=== PATIENT | female | born 1950 | race Caucasian/White ===

== ENCOUNTER 2017-03-14 09:24 | Emergency (ER) | payer MEDICARE, OTHER ==
[2017-03-14] MEDS ORDERED: Amoxicillin/Clavulanate K 875-125 MG Tab ONE ×2 (09:25)
[2017-03-14 09:47] VITALS: BP 131/74
[2017-03-14] MEDS ORDERED: cefTRIAXone 1 GM Vial ONE (09:52)
[2017-03-14] MEDS ORDERED: cefTRIAXone 1 GM Vial IM ONE (10:27)
--- NOTE | 2017-03-14 10:34 | EDM.PDOC ---
ED HPI GENERAL MEDICAL PROBLEM - General Chief Complaint: General Stated Complaint: PAIN IN HAND Time Seen by Provider: 03/14/17 09:30 Source of Information: Reports: Patient History Limitations: Reports: No Limitations - History of Present Illness INITIAL COMMENTS - FREE TEXT/NARRATIVE: Pt was seen 2 days going clinic for a painful swelling over the right dorsum of the hand. Now she has developed some redness and swelling of the dorsum of the hand. Pt claims the swelling was noted today morning. No difficulty with making hand functional consultant. No fever or chills. During her clinic visit the swelling over the hand was aspirated under aseptic precautions and there was not return. The swelling appeared like organized hematoma. Duration: Day(s): (2) right hand Pain Score (Numeric/FACES): 8 - Related Data Allergies Allergy/AdvReac Type Severity Reaction Status Date / Time No Known Allergies Allergy Verified 03/14/17 09:47 Past Medical History HEENT History: Reports: Impaired Vision Musculoskeletal History: Reports: Osteoarthritis - Past Surgical History Musculoskeletal Surgical History: Reports: Knee Replacement Social & Family History - Tobacco Use Smoking Status *Q: Never Smoker Second Hand Smoke Exposure: No - Alcohol Use Days Per Week of Alcohol Use: 0 - Recreational Drug Use Recreational Drug Use: No ED ROS GENERAL - Review of Systems Review Of Systems: See Below Constitutional: Denies: Fever, Chills, Malaise, Weakness HEENT: Denies: Sinus Problem, Throat Pain Respiratory: Denies: Shortness of Breath, Wheezing, Cough, Sputum Cardiovascular: Denies: Chest Pain, Lightheadedness : Denies: Flank Pain Musculoskeletal: Reports: Hand Pain. Denies: Joint Pain, Joint Swelling Skin: Reports: Erythema. Denies: Bruising, Pruritis, Wound Neurological: Denies: Confusion, Dizziness, Headache ED EXAM, GENERAL - Physical Exam Exam: See Below Exam Limited By: No Limitations General Appearance: Alert, WD/WN, No Apparent Distress Eye Exam: Bilateral Eye: EOMI, PERRL Ears: Normal External Exam, Normal Canal, Hearing Grossly Normal, Normal TMs Ear Exam: Bilateral Ear: Auricle Normal, Canal Normal, TM normal Nose: Normal Inspection, Normal Mucosa, No Blood Throat/Mouth: Normal Inspection, Normal Lips, Normal Teeth, Normal Gums, Normal Oropharynx, Normal Voice, No Airway Compromise Head: Atraumatic, Normocephalic Neck: Normal Inspection, Supple, Non-Tender, Full Range of Motion Respiratory/Chest: No Respiratory Distress, Lungs Clear, Normal Breath Sounds, No Accessory Muscle Use, Chest Non-Tender Cardiovascular: Normal Peripheral Pulses, Regular Rate, Rhythm, No Edema, No Gallop, No JVD, No Murmur, No Rub Extremities: Normal Capillary Refill, Other (right hadn: there is swelling and erythema about 2cm by 2cms seen over the webspace between index and middle finger.there is edema of the skin over the dorsum of the hand, but no erythema. Warmth felt over the swelling, soft no flucutance). No: Pedal Edema Course - Vital Signs Text/Narrative:: It does appear like there is infection in the swelling over the dorsum of the right hand with skin edema of the dorsum of the hand. Pt has got hand functional consultant and normal strength in extensor of the finger. does not appear like tendonitis. I have empirically covered her with Rocephin 1gmIM, and started on Augmentin 875mg twice daily. Simple antibiotic ointment dressing with josy wrap done. elevated the hand. should resolve with no complication. If hand pain or swelling worsen. Fever or chills develop, pain with movement of the fingers, return to emergency room or clinic NEIL. Last Recorded V/S: Last Vital Signs Temp 98.0 F 03/14/17 09:36 Pulse 74 03/14/17 09:36 Resp 16 03/14/17 09:36 BP 131/74 03/14/17 09:36 Pulse Ox 98 03/14/17 09:36 - Orders/Labs/Meds Orders: Active Orders 24 hr Category Date Time Status cefTRIAXone [Rocephin] Med 03/14/17 10:27 Once 1 gm IM ONETIME ONE Meds: Medications Discontinued Medications Generic Name Dose Route Start Last Admin Trade Name Freq PRN Reason Stop Dose Admin Ceftriaxone Sodium Confirm 03/14/17 09:52 03/14/17 10:07 Rocephin Administered 03/14/17 09:53 1 gm Dose Administration 1 gm .ROUTE .STK-MED ONE Departure - Departure Time of Disposition: 10:30 Disposition: Home, Self-Care 01 Condition: Good Clinical Impression: Abrasion, hand with infection - Discharge Information Referrals: PCP,None [Primary Care Provider] - Forms: ED Department Discharge Additional Instructions: Take the antibiotic until it is completely gone twice a day. Get lots of rest and drink plenty of fluids. Keep the josy wrap on for 24 hours, use hot pack for discomfort. - Problem List & Annotations (1) Abrasion, hand with infection SNOMED Code(s): 733030284 Code(s): S60.519A - ABRASION OF UNSPECIFIED HAND, INITIAL ENCOUNTER; L08.9 - LOCAL INFECTION OF THE SKIN AND SUBCUTANEOUS TISSUE, UNSP Status: Acute - Problem List Review Problem List Initiated/Reviewed/Updated: Yes - My Orders Last 24 Hours: My Active Orders 03/14/17 10:27 cefTRIAXone [Rocephin] 1 gm IM ONETIME ONE - Assessment/Plan Last 24 Hours: My Active Orders 03/14/17 10:27 cefTRIAXone [Rocephin] 1 gm IM ONETIME ONE Assessment:: Right hand superficial infection Plan: It does appear like there is infection in the swelling over the dorsum of the right hand with skin edema of the dorsum of the hand. Pt has got hand functional consultant and normal strength in extensor of the finger. does not appear like tendonitis. I have empirically covered her with Rocephin 1gmIM, and started on Augmentin 875mg twice daily. Simple antibiotic ointment dressing with josy wrap done. elevated the hand. should resolve with no complication. If hand pain or swelling worsen. Fever or chills develop, pain with movement of the fingers, return to emergency room or clinic NEIL.
== END 2017-03-14 10:10 | disposition home or self-care (01) ==
LOC: LB.ED 09:24
DX: S60.519A Abrasion of unspecified hand, initial encounter (principal); X58.XXXA Exposure to other specified factors, initial encounter
CPT/HCPCS: 99283; A9270; J0696

== ENCOUNTER 2018-07-29 12:34 | Emergency (ER) | payer MEDICARE, OTHER ==
[2018-07-29] MEDS ORDERED: Sodium Chloride 0.9% 10 ML Syringe FLUSH PRN (12:40)
[2018-07-29] MEDS ORDERED: Aspirin 81 MG Tab.Chew PO ONE (12:40)
--- NOTE | 2018-07-29 12:40 | EDM.PDOC ---
ED HPI GENERAL MEDICAL PROBLEM - General Chief Complaint: Cardiovascular Problem Stated Complaint: CHEST PAIN AND HEADACHE Time Seen by Provider: 07/29/18 12:37 Source of Information: Reports: Patient, Family, RN History Limitations: Reports: No Limitations - History of Present Illness INITIAL COMMENTS - FREE TEXT/NARRATIVE: 67 yr female presents with left sided chest pain. States she is feeling some different to the left side of the face, but can't explain this anymore. Left Headache Pain Score (Numeric/FACES): 9 Left Chest Pain Score (Numeric/FACES): 4 - Related Data Allergies Allergy/AdvReac Type Severity Reaction Status Date / Time No Known Allergies Allergy Verified 07/29/18 15:03 Home Meds: Home Meds Escitalopram [Lexapro] 20 mg PO DAILY 07/29/18 [History] Past Medical History HEENT History: Reports: Impaired Vision Musculoskeletal History: Reports: Osteoarthritis - Past Surgical History Musculoskeletal Surgical History: Reports: Knee Replacement ED ROS GENERAL - Review of Systems Review Of Systems: See Below Constitutional: Reports: No Symptoms HEENT: Denies: Eye Pain, Hearing Loss, Vision Change Respiratory: Reports: No Symptoms Cardiovascular: Reports: Chest Pain Endocrine: Reports: No Symptoms GI/Abdominal: Reports: No Symptoms : Reports: No Symptoms Musculoskeletal: Reports: Other (tingling/numbness to left side of face) Skin: Reports: No Symptoms Neurological: Reports: Headache. Denies: Trouble Speaking, Difficulty Walking, Change in Speech Psychiatric: Reports: No Symptoms Hematologic/Lymphatic: Reports: No Symptoms Immunologic: Reports: No Symptoms ED EXAM, GENERAL - Physical Exam Exam: See Below Exam Limited By: No Limitations General Appearance: Alert, No Apparent Distress Ears: Normal External Exam, Hearing Grossly Normal Nose: Normal Inspection, Normal Mucosa Throat/Mouth: Normal Voice, No Airway Compromise Head: Atraumatic, Normocephalic Neck: Normal Inspection, Supple, Non-Tender Respiratory/Chest: No Respiratory Distress, Lungs Clear, Normal Breath Sounds Cardiovascular: Normal Peripheral Pulses, Regular Rate, Rhythm Peripheral Pulses: 2+: Radial (L), Radial (R), Dorsalis Pedis (L), Dorsalis Pedis (R) GI/Abdominal: Normal Bowel Sounds, Soft, Non-Tender Back Exam: Normal Inspection, Full Range of Motion Extremities: Normal Inspection, Normal Range of Motion, No Pedal Edema, Normal Capillary Refill Neurological: Alert, Oriented, Normal Cognition Psychiatric: Normal Affect, Normal Mood Skin Exam: Warm, Dry, Normal Color Lymphatic: No Adenopathy EKG INTERPRETATION EKG Date: 07/29/18 Rhythm: NSR Course - Vital Signs Last Recorded V/S: Last Vital Signs Temp 97.2 F 07/29/18 15:26 Pulse 82 07/29/18 15:26 Resp 18 07/29/18 15:26 BP 173/76 H 07/29/18 15:26 Pulse Ox 98 07/29/18 15:26 - Orders/Labs/Meds Orders: Active Orders 24 hr Category Date Time Status Cardiac Monitoring [RC] .As Directed Care 07/29/18 12:40 Active EKG Documentation Completion [RC] ASDIRECTED Care 07/29/18 12:42 Active Saline Lock Insert [OM.PC] Stat Oth 07/29/18 12:40 Ordered Labs: Laboratory Tests 07/29/18 07/29/18 07/29/18 Range/Units 12:40 13:00 13:00 WBC 6.3 (4.0-11.0) K/uL RBC 4.81 (3.80-5.80) M/uL Hgb 13.4 (11.5-16.5) g/dL Hct 40.7 (37.0-47.0) % MCV 85 (76-96) fL MCH 27.9 (27.0-32.0) pg MCHC 32.9 (31.0-35.0) g/dL RDW 15.7 (11.0-16.0) % Plt Count 186 D (150-500) K/uL MPV 9.6 (6.0-10.0) fL Neut % (Auto) 71.6 H (45.0-70.0) % Lymph % (Auto) 19.9 L (20.0-40.0) % [place] % (Auto) 6.6 (3.0-10.0) % Eos % (Auto) 1.4 (1.0-5.0) % Baso % (Auto) 0.5 (0.0-0.5) % Neut # (Auto) 4.53 (2.00-7.50) K/uL Lymph # (Auto) 1.26 L (1.50-4.00) K/uL [place] # (Auto) 0.42 (0.20-0.80) K/uL Eos # (Auto) 0.09 (0.04-0.40) K/uL Baso # (Auto) 0.03 (0.02-0.10) K/uL Sodium 139 (136-145) mmol/L Potassium 3.9 (3.5-5.1) mmol/L Chloride 101 (98-107) mmol/L Carbon Dioxide 27.1 (21.0-32.0) mmol/L Anion Gap 14.8 (5.0-15.0) mmol/L BUN 13 (8-26) mg/dL Creatinine 0.76 (0.55-1.02) mg/dL Est Cr Clr Drug Dosing TNP Estimated GFR (MDRD) > 60 (>60) MLS/MIN BUN/Creatinine Ratio 17.1 (6-25) Glucose 103 H (74-100) mg/dL Calcium 9.3 (8.5-10.1) mg/dL Magnesium 2.1 (1.8-2.4) mg/dL Total Bilirubin 0.3 (0.0-1.0) mg/dL AST 19 (15-37) U/L ALT 26 (12-78) U/L Alkaline Phosphatase 65 (46-116) U/L Troponin I < 0.017 (0.000-0.060) ng/mL Total Protein 7.8 (6.4-8.2) g/dL Albumin 3.9 (3.4-5.0) g/dL Globulin 3.9 (2.2-4.2) g/dL Albumin/Globulin Ratio 1.0 (0.8-2.0) TSH, Ultra Sensitive 1.993 (0.358-3.740) uIU/mL Urine Color Urine Appearance (CLEAR) Urine pH (5.0-8.0) Ur Specific [place] (1.003-1.030) Urine Protein (NEGATIVE) mg/dL Urine Glucose (UA) (NEGATIVE) mg/dL Urine Ketones (NEGATIVE) mg/dL Urine Occult Blood (NEGATIVE) Urine Nitrite (NEGATIVE) Urine Bilirubin (NEGATIVE) Urine Urobilinogen (0.2-1.0) E.U./dL Ur Leukocyte Esterase (NEGATIVE) Urine RBC /HPF Urine WBC /HPF Ur Squamous Epith Cells /HPF 05/30/19 Range/Units 13:25 WBC (4.0-11.0) K/uL RBC (3.80-5.80) M/uL Hgb (11.5-16.5) g/dL Hct (37.0-47.0) % MCV (76-96) fL MCH (27.0-32.0) pg MCHC (31.0-35.0) g/dL RDW (11.0-16.0) % Plt Count (150-500) K/uL MPV (6.0-10.0) fL Neut % (Auto) (45.0-70.0) % Lymph % (Auto) (20.0-40.0) % [place] % (Auto) (3.0-10.0) % Eos % (Auto) (1.0-5.0) % Baso % (Auto) (0.0-0.5) % Neut # (Auto) (2.00-7.50) K/uL Lymph # (Auto) (1.50-4.00) K/uL [place] # (Auto) (0.20-0.80) K/uL Eos # (Auto) (0.04-0.40) K/uL Baso # (Auto) (0.02-0.10) K/uL Sodium (136-145) mmol/L Potassium (3.5-5.1) mmol/L Chloride (98-107) mmol/L Carbon Dioxide (21.0-32.0) mmol/L Anion Gap (5.0-15.0) mmol/L BUN (8-26) mg/dL Creatinine (0.55-1.02) mg/dL Est Cr Clr Drug Dosing Estimated GFR (MDRD) (>60) MLS/MIN BUN/Creatinine Ratio (6-25) Glucose (74-100) mg/dL Calcium (8.5-10.1) mg/dL Magnesium (1.8-2.4) mg/dL Total Bilirubin (0.0-1.0) mg/dL AST (15-37) U/L ALT (12-78) U/L Alkaline Phosphatase (46-116) U/L Troponin I (0.000-0.060) ng/mL Total Protein (6.4-8.2) g/dL Albumin (3.4-5.0) g/dL Globulin (2.2-4.2) g/dL Albumin/Globulin Ratio (0.8-2.0) TSH, Ultra Sensitive (0.358-3.740) uIU/mL Urine Color Yellow Urine Appearance Clear (CLEAR) Urine pH 6.0 (5.0-8.0) Ur Specific [place] 1.010 (1.003-1.030) Urine Protein Negative (NEGATIVE) mg/dL Urine Glucose (UA) Negative (NEGATIVE) mg/dL Urine Ketones Negative (NEGATIVE) mg/dL Urine Occult Blood Trace-intact H (NEGATIVE) Urine Nitrite Negative (NEGATIVE) Urine Bilirubin Negative (NEGATIVE) Urine Urobilinogen 0.2 (0.2-1.0) E.U./dL Ur Leukocyte Esterase Small H (NEGATIVE) Urine RBC 0-5 H /HPF Urine WBC 5-10 H /HPF Ur Squamous Epith Cells Moderate /HPF Meds: Medications Discontinued Medications Generic Name Dose Route Start Last Admin Trade Name Freq PRN Reason Stop Dose Admin Aspirin 324 mg 07/29/18 12:40 07/29/18 12:38 Aspirin PO 07/29/18 12:41 324 mg ONETIME ONE Administration Sodium Chloride 10 ml 07/29/18 12:40 Saline Flush FLUSH ASDIRECTED PRN Keep Vein Open Departure - Departure Time of Disposition: 14:41 Disposition: Home, Self-Care 01 Condition: Good Clinical Impression: Headache, Atypical chest pain Instructions: Nonspecific Chest Pain, Dizziness, [id number] Referrals: PCP,None [Primary Care Provider] - Forms: ED Department Discharge Additional Instructions: Take it easy today. Drink plenty of fluids follow up at the clinic in 1 one week. Make your own appointment If any further problems seek medical attention or call 911. Including chest pain, headache, - My Orders Last 24 Hours: My Active Orders 07/29/18 12:40 Cardiac Monitoring [RC] .As Directed Saline Lock Insert [OM.PC] Stat 07/29/18 12:42 EKG Documentation Completion [RC] ASDIRECTED - Assessment/Plan Last 24 Hours: My Active Orders 07/29/18 12:40 Cardiac Monitoring [RC] .As Directed Saline Lock Insert [OM.PC] Stat 07/29/18 12:42 EKG Documentation Completion [RC] ASDIRECTED Plan: EKG with NSR, chest pain resolved with ASA and rest, troponins negative. Lab results reviewed with pt. Intermittent pain to left forehead and left intercostal rib area. Intermittent numbness/tingling to side of face. CT results reviewed and no infarct noted. Recommend follow-up in clinic next week. Repeat U/A as trace of microscopic hematuria. Symptoms improved and pt less anxious. Monitor BP at home and bring results to the clinic appointment. Return to ER if symptoms persist or worsen. Rest today and up in home as tolerated, diet as tolerated and adequate fluid intake.
--- NOTE | 2018-07-29 14:11 | CR ---
Date of Service: 07/29/18 Clinical Data: Chest Pain AP PORTABLE CHEST: Comparison is made to a prior exam dated 05/16/12. The heart size is normal. The lungs are clear. No pneumothorax. No pleural effusions. No evidence of acute intrathoracic disease. [id number] MTDD
--- NOTE | 2018-07-29 14:48 | CRLCT ---
DATE OF SERVICE: 07/29/2018 CLINICAL DATA: Headache, Unenhanced brain CT: Multislice acquisition through the brain without IV contrast was performed. Comparison is made to a prior exam dated 05/16/2012. No masses or mass effect. No intracranial hemorrhage. No evidence of acute or subacute infarct. No osseous abnormalities. Impression: No acute intracranial abnormalities. [facility]
[2018-07-29 15:55] VITALS: BP 173/76
== END 2018-07-29 15:01 | disposition home or self-care (01) ==
LOC: LB.ED 12:34
DX: R07.89 Other chest pain (principal); R51 Headache
CPT/HCPCS: 36415; 70450; 71045; 80053; 81001; 83735; 84443; 84484; 85025; 93005; 99284; 99285-25; A9270-GY

== ENCOUNTER 2022-10-19 19:15 | Emergency (ER) | payer MEDICARE, OTHER ==
[2022-10-19 20:08] VITALS: BP 169/66; PULSE 69
== END 2022-10-19 19:55 | disposition home or self-care (01) ==
LOC: SUPCPDRO 19:15 → LB.ED 19:15
DX: L03.90 Cellulitis, unspecified (principal); B37.2 Candidiasis of skin and nail; L30.9 Dermatitis, unspecified; I10 Essential (primary) hypertension; Z79.899 Other long term (current) drug therapy
CPT/HCPCS: 99283

== ENCOUNTER 2022-10-27 06:57 | Emergency (ER) | payer MEDICARE, OTHER ==
[2022-10-27] MEDS ORDERED: Sodium Chloride 0.9% 10 ML Syringe FLUSH PRN (07:27)
[2022-10-27] MEDS: Ondansetron 4 MG/2 ML SDV IVPUSH ONE (07:32)
[2022-10-27] MEDS: Ketorolac 60 MG/2 ML SDV IVPUSH ONE (07:34)
[2022-10-27] MEDS: Ondansetron 4 MG/2 ML SDV ONE (07:42)
[2022-10-27] MEDS: Ketorolac 60 MG/2 ML SDV ONE (07:42)
[2022-10-27 07:49] LABS: APPEARANCE,URINE CLEAR (CLEAR); BILIRUBIN,URINE NEGATIVE (NEGATIVE); COLOR,URINE YELLOW; GLUCOSE,URINE NEGATIVE (NEGATIVE); KETONES,URINE NEGATIVE (NEGATIVE); LEUKOCYTE ESTERASE,URINE TRACE (NEGATIVE); NITRITE,URINE NEGATIVE (NEGATIVE); OCCULT BLOOD,URINE NEGATIVE (NEGATIVE); PROTEIN,URINE NEGATIVE (NEGATIVE); UROBILINOGEN,URINE 0.2 E.U./dL (0.2-1.0)
[2022-10-27 07:51] LABS: BASOPHILS ABSOLUTE AUTO 0.04 K/uL (0.02-0.10); BASOPHILS PERCENT AUTO 0.5 % (0.0-0.5); EOSINOPHILS PERCENT AUTO 1.3 % (1.0-5.0); HEMATOCRIT 41.1 % (37.0-47.0); HEMOGLOBIN 13.6 g/dL (11.5-16.5); LYMPHOCYTES ABSOLUTE AUTO 1.79 K/uL (1.50-4.00); LYMPHOCYTES PERCENT AUTO 22.5 % (20.0-40.0); MEAN CORPUSCULAR HEMOGLOBIN 28.5 pg (27.0-32.0); MEAN CORPUSCULAR HGB CONC 33.1 g/dL (31.0-35.0); MEAN CORPUSCULAR VOLUME 86 fL (76-96); MEAN PLATELET VOLUME 9.3 fL (6.0-10.0); MONOCYTES ABSOLUTE AUTO 0.54 K/uL (0.20-0.80); MONOCYTES PERCENT AUTO 6.8 % (3.0-10.0); NEUTROPHILS ABSOLUTE AUTO 5.48 K/uL (2.00-7.50); NEUTROPHILS PERCENT AUTO 68.9 % (45.0-70.0); PLATELET COUNT,PLT 277 K/uL (150-500); RED BLOOD CELL COUNT 4.78 M/uL (3.80-5.80); RED CELL DISTRIBUTION WIDTH 15.3 % (11.0-16.0)
[2022-10-27 07:55] LABS: RBC,URINE 0-5 /HPF; SQUAMOUS EPITHELIAL CELLS,UR OCCASIONAL /HPF; WBC,URINE 0-5 /HPF
[2022-10-27 08:09] LABS: A/G RATIO 0.9 (0.8-2.0); ALBUMIN 3.5 g/dL (3.4-5.0); ANION GAP 14.3 mmol/L (5.0-15.0); BILIRUBIN TOTAL 0.2 mg/dL (0.0-1.0); BUN/CREATININE RATIO 19.5 (6-25); CARBON DIOXIDE,CO2 27.9 mmol/L (21.0-32.0); CREATININE 0.77 mg/dL (0.55-1.02); EST CRCL DRUG DOSING (CG) 56.19 mL/min; MAGNESIUM 2.2 mg/dL (1.8-2.4); POTASSIUM,K 4.2 mmol/L (3.5-5.1); PROTEIN TOTAL,TP 7.3 g/dL (6.4-8.2)
[2022-10-27 09:09] VITALS: BP 144/54; PULSE 65
== END 2022-10-27 09:10 | disposition home or self-care (01) ==
LOC: LB.ED 06:57
DX: R10.31 Right lower quadrant pain (principal); M54.50 Low back pain, unspecified; G89.29 Other chronic pain; I10 Essential (primary) hypertension; E66.01 Morbid (severe) obesity due to excess calories; Z68.41 Body mass index [BMI] 40.0-44.9, adult
CPT/HCPCS: 36415; 74176; 80053; 81001; 83690; 83735; 85025; 87086; 96374; 96375; 99284; J1885; J2405

== ENCOUNTER 2023-12-17 10:15 | Emergency (ER) | payer MEDICARE, OTHER ==
[2023-12-17 11:01] LABS: BASOPHILS ABSOLUTE AUTO 0.03 K/uL (0.02-0.10); BASOPHILS PERCENT AUTO 0.5 % (0.0-0.5); EOSINOPHILS ABSOLUTE AUTO 0.09 K/uL (0.04-0.40); EOSINOPHILS PERCENT AUTO 1.5 % (1.0-5.0); HEMATOCRIT 38.2 % (37.0-47.0); HEMOGLOBIN 12.6 g/dL (11.5-16.5); LYMPHOCYTES PERCENT AUTO 19.4 % (20.0-40.0); MEAN CORPUSCULAR HEMOGLOBIN 29.3 pg (27.0-32.0); MEAN CORPUSCULAR VOLUME 89 fL (76-96); MEAN PLATELET VOLUME 9.4 fL (6.0-10.0); MONOCYTES ABSOLUTE AUTO 0.39 K/uL (0.20-0.80); MONOCYTES PERCENT AUTO 6.3 % (3.0-10.0); NEUTROPHILS ABSOLUTE AUTO 4.49 K/uL (2.00-7.50); NEUTROPHILS PERCENT AUTO 72.3 % (45.0-70.0); PLATELET COUNT,PLT 244 K/uL (150-500); RED CELL DISTRIBUTION WIDTH 14.4 % (11.0-16.0); WHITE BLOOD CELL COUNT,WBC 6.2 K/uL (4.0-11.0)
[2023-12-17 11:26] LABS: ALBUMIN 3.4 g/dL (3.4-5.0); ANION GAP 10.9 mmol/L (5.0-15.0); BILIRUBIN TOTAL 0.5 mg/dL (0.0-1.0); BUN/CREATININE RATIO 17.1 (6-25); CALCIUM 9.1 mg/dL (8.5-10.1); CARBON DIOXIDE,CO2 27.2 mmol/L (21.0-32.0); CREATININE 0.7 mg/dL (0.55-1.02); EST CRCL DRUG DOSING (CG) 60.89 mL/min; POTASSIUM,K 4.1 mmol/L (3.5-5.1); PROTEIN TOTAL,TP 6.7 g/dL (6.4-8.2); TROPONIN I HIGH SENSITIVITY 6.6 pg/ml (<=60.4)
[2023-12-17 12:08] VITALS: BP 132/48; PULSE 61
== END 2023-12-17 12:10 | disposition home or self-care (01) ==
LOC: LB.ED 10:15
DX: R07.9 Chest pain, unspecified (principal); I10 Essential (primary) hypertension; E66.9 Obesity, unspecified; Z68.41 Body mass index [BMI] 40.0-44.9, adult
CPT/HCPCS: 36415; 71046; 80053; 84484; 85025; 99285